=== PATIENT | male | born 1960 | race Caucasian/White ===

== ENCOUNTER 2017-08-26 21:24 | Emergency (ER) | payer MEDICARE ==
[~2017-08-26] VITALS: Ht 170.2 cm; Wt 86.4 kg
[2017-08-26] MEDS ORDERED: SYNTHROID0.05 MG PO (21:36)
[2017-08-26] MEDS ORDERED: GLUCOTROL XL10 M1 PO (21:37)
[2017-08-26] MEDS ORDERED: PRILOSEC 20MG20 MG PO (21:37)
[2017-08-26 22:14] LABS: HEMATOCRIT 33.8 % (42.0-52.0); HEMOGLOBIN 11.4 g/dL (13.5-18.0); MEAN CELL VOLUME 92 fl (78-100); MEAN CORPUSCULAR HEMOGLOBIN 31 pg (27-31); MEAN CORPUSCULAR HGB CONC 34 g/dL (33-37); MEAN PLATELET VOLUME 10.2 fl (7.4-10.4); PLATELET COUNT 104 K/mm3 (130-400); RED BLOOD COUNT 3.68 M/mm3 (4.20-5.60); RED CELL DISTRIBUTION WIDTH 12.7 % (11.5-14.5); WHITE BLOOD COUNT 3.3 K/mm3 (4.8-10.8)
[2017-08-26 22:24] LABS: BUN/CREATININE RATIO 12.6 (6.0-26.0); CALCIUM 8.7 mg/dL (8.4-10.2); POTASSIUM 5.1 mmol/L (3.6-5.0)
[2017-08-26 22:32] LABS: BAND 2 % (0-10); LYMPHOCYTE 29 % (20-51); MONOCYTE 10 % (3-10); NEUTROPHILS 55 % (42-75)
[2017-08-27 01:58] VITALS: BP 112/68
[2017-08-27] MEDS ORDERED: DEXAMETHASONE/TO5 ML OD (12:19)
[2017-08-27] MEDS ORDERED: TAGAMET HB200 M1 PO (12:20)
[2017-08-27] MEDS ORDERED: COMFORT POINT I1 DEV SQ (13:11)
[2017-08-27] MEDS ORDERED: LANTUS SOLOS100 U/ML SQ (13:11)
== END 2017-08-27 01:58 | disposition home or self-care (01) ==
LOC: ED 21:24
PROVIDERS: Family Medicine
DX: E11.65 Type 2 diabetes mellitus with hyperglycemia (principal); H16.001 Unspecified corneal ulcer, right eye; H04.123 Dry eye syndrome of bilateral lacrimal glands; Z91.14 Patient's other noncompliance with medication regimen; I25.2 Old myocardial infarction; K21.9 Gastro-esophageal reflux disease without esophagitis; E03.9 Hypothyroidism, unspecified; Z95.5 Presence of coronary angioplasty implant and graft
CPT/HCPCS: J1815

== ENCOUNTER 2017-08-27 11:41 | Emergency (ER) | payer MEDICARE ==
[~2017-08-27] VITALS: Ht 170.2 cm; Wt 81.8 kg
[~2017-08-27 11:41] MED LIST: GLUCOTROL XL10 M1 PO; PRILOSEC 20MG20 MG PO; SYNTHROID0.05 MG PO
[2017-08-27] MEDS ORDERED: DEXAMETHASONE/TO5 ML OD (12:19)
[2017-08-27] MEDS ORDERED: TAGAMET HB200 M1 PO (12:20)
[2017-08-27] MEDS ORDERED: LANTUS SOLOS100 U/ML SQ (13:11)
[2017-08-27] MEDS ORDERED: COMFORT POINT I1 DEV SQ (13:11)
[2017-08-27 13:15] LABS: PH-URINE 6.5 (5.0 - 8.0); URINE APPEARANCE CLEAR; URINE BILIRUBIN NEGATIVE (NEGATIVE); URINE BLOOD NEGATIVE (NEGATIVE); URINE COLOR YELLOW; URINE KETONE NEGATIVE (NEGATIVE); URINE LEUKOCYTE ESTERASE NEGATIVE (NEGATIVE); URINE NITRATE NEGATIVE (NEGATIVE); URINE PROTEIN(semi-quant) NEGATIVE (NEGATIVE); URINE UROBILINOGEN NORMAL (NORMAL); URINE WBC 0-1 /hpf (0-3)
[2017-08-27 14:40] VITALS: BP 110/71
== END 2017-08-27 14:40 | disposition home or self-care (01) ==
LOC: ED 11:41
PROVIDERS: Family Medicine
DX: E11.65 Type 2 diabetes mellitus with hyperglycemia (principal); E11.22 Type 2 diabetes mellitus with diabetic chronic kidney disease; N18.9 Chronic kidney disease, unspecified; I25.10 Atherosclerotic heart disease of native coronary artery without angina pectoris; Z95.5 Presence of coronary angioplasty implant and graft; H16.001 Unspecified corneal ulcer, right eye; H04.123 Dry eye syndrome of bilateral lacrimal glands
CPT/HCPCS: J1815